=== PATIENT | female | born 2000 | race Caucasian/White ===

== ENCOUNTER 2020-03-23 14:43 | Emergency (ER) | payer OTHER ==
[~2020-03-23] VITALS: Ht 162.6 cm; Wt 46.4 kg
[2020-03-23 15:52] VITALS: BP 113/65; Ht 162.6 cm; Wt 46.4 kg
== END 2020-03-23 17:50 | disposition home or self-care (01) ==
LOC: ED 14:43
DX: S00.83XA Contusion of other part of head, initial encounter (principal); R51.9 Headache, unspecified; Y04.8XXA Assault by other bodily force, initial encounter; Y93.89 Activity, other specified; Y92.89 Other specified places as the place of occurrence of the external cause; Y99.8 Other external cause status